=== PATIENT | male | born 1930 | race Caucasian/White ===

== ENCOUNTER 2016-08-28 00:05 | Emergency (ER) | payer MEDICARE, OTHER ==
[~2016-08-28] VITALS: Ht 185.4 cm; Wt 82.0 kg
[~2016-08-28 00:05] MED LIST: ASPI-496 PO; CALC200T3 PO; LISI40TA PO; METO-95 PO; TAMS0.4C2 PO
[2016-08-28] MEDS ORDERED: FAMOTIDINE 20 MG TABLET ONE (00:28)
[2016-08-28] MEDS ORDERED: FAMOTIDINE 20 MG TABLET PO ONE (00:30)
[2016-08-28] MEDS ORDERED: EPINEPHRINE 1 MG/ML, 1ML ONE (01:10)
[2016-08-28] MEDS ORDERED: EPINEPHRINE 1 MG/ML, 1ML SQ ONE (01:30)
[2016-08-28 01:59] VITALS: BP 102/67
== END 2016-08-28 02:07 ==
LOC: ED 00:21
DX: L50.9 Urticaria, unspecified (principal); I10 Essential (primary) hypertension; Z85.46 Personal history of malignant neoplasm of prostate
CPT/HCPCS: 93005; 96372; 99284; J0171; J7512; Q0177

== ENCOUNTER 2016-09-17 11:42 | Inpatient (IN) | payer MEDICARE, OTHER ==
[~2016-09-17] VITALS: Ht 182.9 cm; Wt 76.2 kg
[2016-09-17] MEDS ORDERED: SODIUM CHLORIDE 0.9% 1,000 ML IV ONE ×3 (11:43→16:30)
[2016-09-17] MEDS ORDERED: SODIUM CHLORIDE 0.9% 1,000ML IVBOLUS ONE (12:00)
[2016-09-17] MEDS ORDERED: SODIUM CHLORIDE FLUSH 10ML SYR IVF ONE (12:00)
[2016-09-17 12:21] LABS: ASPARTATE AMINO TRANSFERASE 20 U/L (15-37); BLOOD UREA NITROGEN 23 mg/dL (7-18)
[2016-09-17] MEDS ORDERED: LISI-170 PO (14:26)
[2016-09-17] MEDS ORDERED: PANT40TA5 PO (14:26)
[2016-09-17] MEDS ORDERED: SUCR1TAB26 PO (14:26)
[2016-09-17] MEDS ORDERED: SODIUM CHLORIDE FLUSH 10ML SYR IVF PRN ×2 (14:30→16:30)
[2016-09-17] MEDS ORDERED: ACETAMINOPHEN 325 MG TABLET PO PRN (15:30)
[2016-09-17] MEDS ORDERED: ONDANSETRON ODT 4 MG PO PRN (15:30)
[2016-09-17] MEDS ORDERED: ONDANSETRON 2MG/ML, 2ML IVPush PRN (15:30)
[2016-09-17] MEDS ORDERED: HEPARIN 5,000 UNITS/ML, 1ML SQ SCH (15:30)
[2016-09-17] MEDS ORDERED: CALCIUM CARBONATE 500 MG TAB.CHEW PO PRN (16:00)
[2016-09-17 17:18] VITALS: BP 145/83
[2016-09-17] MEDS ORDERED: OMNIPAQUE 350 MG/ML, 75ML BOTTLE ONE (18:15)
[2016-09-17 19:14] LABS: IS PT STATUS REG ER OR PRE ER? NO
[2016-09-17] MEDS: POTASSIUM CHLORIDE 10 MEQ in SODIUM CHLORIDE 0.45% 1,000 ML IV SCH (19:41)
[2016-09-17 19:45] VITALS: BP 126/66
[2016-09-17] MEDS: SUCRALFATE 1 GM TABLET PO SCH (20:17)
[2016-09-17] MEDS: TAMSULOSIN 0.4 MG CAP.ER.24H PO SCH (20:17)
[2016-09-18 01:53] LABS: IS PT STATUS REG ER OR PRE ER? NO
[2016-09-18 01:55] LABS: ASPARTATE AMINO TRANSFERASE 18 U/L (15-37); BLOOD UREA NITROGEN 19 mg/dL (7-18)
[2016-09-18 02:08] VITALS: BP 103/57
[2016-09-18] MEDS: POTASSIUM CHLORIDE 10 MEQ in SODIUM CHLORIDE 0.45% 1,000 ML IV SCH ×3 (02:48→16:00)
[2016-09-18] MEDS: HEPARIN 5,000 UNITS/ML, 1ML SQ SCH ×4 (04:10→22:00)
[2016-09-18] MEDS: ASPIRIN 81 MG TABLET EC PO SCH (08:00)
[2016-09-18] MEDS: SUCRALFATE 1 GM TABLET PO SCH ×2 (08:00→22:00)
[2016-09-18] MEDS: PANTOPROZOLE 40MG TABLET PO SCH (08:00)
[2016-09-18] MEDS ORDERED: HEPARIN 5,000 UNITS/ML, 1ML SQ SCH (20:00)
[2016-09-18] MEDS: TAMSULOSIN 0.4 MG CAP.ER.24H PO SCH (22:00)
[2016-09-19] MEDS: HEPARIN 5,000 UNITS/ML, 1ML SQ SCH ×2 (04:00→21:48)
[2016-09-19] MEDS: ASPIRIN 81 MG TABLET EC PO SCH ×2 (08:00→09:00)
[2016-09-19 08:25] VITALS: BP 120/72
[2016-09-19] MEDS: POTASSIUM CHLORIDE 10 MEQ in SODIUM CHLORIDE 0.45% 1,000 ML IV SCH ×2 (09:00→16:23)
[2016-09-19] MEDS: SUCRALFATE 1 GM TABLET PO SCH ×2 (09:00→21:47)
[2016-09-19] MEDS: PANTOPROZOLE 40MG TABLET PO SCH (09:00)
[2016-09-19 15:00] VITALS: BP 137/75
[2016-09-19 15:02] VITALS: BP 107/66
[2016-09-19 15:04] VITALS: BP 91/52
[2016-09-19 20:32] VITALS: BP 129/84
[2016-09-19] MEDS ORDERED: CEFTRIAXONE 1,000 MG in SODIUM CHLORIDE 0.9% 50 ML IV SCH (21:00)
[2016-09-19] MEDS: TAMSULOSIN 0.4 MG CAP.ER.24H PO SCH (21:47)
[2016-09-19] MEDS: CEFTRIAXONE 1,000 MG in DEXTROSE 5% 50 ML IV SCH (21:48)
[2016-09-20] VITALS (8 sets, daily range): BP systolic 86–156; BP diastolic 51–89
[2016-09-20] MEDS: POTASSIUM CHLORIDE 10 MEQ in SODIUM CHLORIDE 0.45% 1,000 ML IV SCH (01:40)
[2016-09-20] MEDS: HEPARIN 5,000 UNITS/ML, 1ML SQ SCH (03:39)
[2016-09-20] MEDS ORDERED: FLUDROCORTISONE 0.1 MG TABLET PO SCH ×2 (09:30→21:00)
[2016-09-20] MEDS: SODIUM CHLORIDE 0.9% 1,000 ML IV SCH ×2 (10:31→21:09)
[2016-09-20] MEDS: CEFTRIAXONE 1,000 MG in DEXTROSE 5% 50 ML IV SCH (21:09)
[2016-09-21] VITALS (8 sets, daily range): BP systolic 83–162; BP diastolic 54–94
[2016-09-21] MEDS: SODIUM CHLORIDE 0.9% 1,000 ML IV SCH ×2 (07:30→20:45)
[2016-09-21] MEDS: SUCRALFATE 1 GM TABLET PO SCH ×2 (09:00→20:45)
[2016-09-21] MEDS: FLUDROCORTISONE 0.1 MG TABLET PO SCH ×3 (09:50→20:46)
[2016-09-21] MEDS: ASPIRIN 81 MG TABLET EC PO SCH (09:52)
[2016-09-21] MEDS: PANTOPROZOLE 40MG TABLET PO SCH (09:53)
[2016-09-21 12:29] LABS: BLOOD UREA NITROGEN 11 mg/dL (7-18)
[2016-09-21 12:55] LABS: BLOOD UREA NITROGEN 11 mg/dL (7-18)
[2016-09-21] MEDS: HEPARIN 5,000 UNITS/ML, 1ML SQ SCH ×2 (13:11→20:47)
[2016-09-21] MEDS: CEFTRIAXONE 1,000 MG in DEXTROSE 5% 50 ML IV SCH (20:47)
[2016-09-21] MEDS: DOCUSATE 100 MG CAPSULE PO PRN (20:52)
[2016-09-22 00:58] VITALS: BP 151/86
[2016-09-22] MEDS: SODIUM CHLORIDE 0.9% 1,000 ML IV SCH (05:23)
[2016-09-22] MEDS: HEPARIN 5,000 UNITS/ML, 1ML SQ SCH ×3 (05:23→20:46)
[2016-09-22 05:37] LABS: BLOOD UREA NITROGEN 9 mg/dL (7-18)
[2016-09-22 08:22] VITALS: BP_SYST 127; BP_SYST 143; BP_SYST 88; BP_DIAS 54; BP_DIAS 80; BP_DIAS 86
[2016-09-22] MEDS: FLUDROCORTISONE 0.1 MG TABLET PO SCH ×3 (10:12→20:45)
[2016-09-22] MEDS: ASPIRIN 81 MG TABLET EC PO SCH (10:13)
[2016-09-22] MEDS: PANTOPROZOLE 40MG TABLET PO SCH (10:13)
[2016-09-22] MEDS: SUCRALFATE 1 GM TABLET PO SCH ×2 (10:13→20:46)
[2016-09-22 13:46] VITALS: BP_SYST 110; BP_SYST 127; BP_SYST 146; BP_DIAS 69; BP_DIAS 79; BP_DIAS 95
[2016-09-22] MEDS ORDERED: OMNIPAQUE 350 MG/ML, 100ML BOTTLE ONE (16:25)
[2016-09-22 20:24] VITALS: BP_SYST 119; BP_SYST 147; BP_SYST 156; BP_DIAS 68; BP_DIAS 76; BP_DIAS 87
[2016-09-22] MEDS: DOCUSATE 100 MG CAPSULE PO PRN (20:46)
[2016-09-23 03:03] VITALS: BP_SYST 131; BP_SYST 146; BP_SYST 91; BP_DIAS 52; BP_DIAS 77; BP_DIAS 79
[2016-09-23] MEDS: HEPARIN 5,000 UNITS/ML, 1ML SQ SCH (05:33)
[2016-09-23 07:17] VITALS: BP_SYST 131; BP_SYST 132; BP_SYST 95; BP_DIAS 51; BP_DIAS 75; BP_DIAS 90
[2016-09-23] MEDS: SUCRALFATE 1 GM TABLET PO SCH (08:17)
[2016-09-23] MEDS: ASPIRIN 81 MG TABLET EC PO SCH (08:18)
[2016-09-23] MEDS: FLUDROCORTISONE 0.1 MG TABLET PO SCH (08:18)
[2016-09-23] MEDS: PANTOPROZOLE 40MG TABLET PO SCH (08:19)
[2016-09-23] MEDS ORDERED: FLUDROCORTISONE 0.1 MG TABLET PO ONE (11:30)
[2016-09-23] MEDS ORDERED: FLUD0.1T PO (12:30)
[2016-09-23] MEDS ORDERED: METR500T PO (12:37)
[2016-09-23] MEDS ORDERED: CIPR500T87 PO (12:43)
[2016-09-23 14:04] VITALS: BP_SYST 108; BP_SYST 139; BP_SYST 164; BP_DIAS 100; BP_DIAS 59; BP_DIAS 87
[2016-09-23] MEDS ORDERED: FLUDROCORTISONE 0.1 MG TABLET PO SCH (21:00)
== END 2016-09-23 16:06 | disposition home or self-care (01) | DRG 312 ==
LOC: ED 14:16 → EDIP 14:50 → 3NE 15:22 → 4EST 15:35 → 4WST 16:39
PROVIDERS: ADMIT Hospitalist; ATTEND Hospitalist
DX: I95.1 Orthostatic hypotension (principal); I13.0 Hypertensive heart and chronic kidney disease with heart failure and stage 1 through stage 4 chronic kidney disease, or unspecified chronic kidney disease; I42.9 Cardiomyopathy, unspecified; I50.22 Chronic systolic (congestive) heart failure; R78.81 Bacteremia; C78.01 Secondary malignant neoplasm of right lung; N18.2 Chronic kidney disease, stage 2 (mild); I65.23 Occlusion and stenosis of bilateral carotid arteries; K21.9 Gastro-esophageal reflux disease without esophagitis; K52.9 Noninfective gastroenteritis and colitis, unspecified; E86.0 Dehydration; N28.1 Cyst of kidney, acquired; R91.1 Solitary pulmonary nodule; Z66 Do not resuscitate; Z79.82 Long term (current) use of aspirin; Z80.0 Family history of malignant neoplasm of digestive organs; Z80.7 Family history of other malignant neoplasms of lymphoid, hematopoietic and related tissues; Z85.46 Personal history of malignant neoplasm of prostate; Z85.810 Personal history of malignant neoplasm of tongue; Z85.828 Personal history of other malignant neoplasm of skin; Z87.891 Personal history of nicotine dependence; Z95.0 Presence of cardiac pacemaker; Z95.2 Presence of prosthetic heart valve; Z90.49 Acquired absence of other specified parts of digestive tract; Z81.8 Family history of other mental and behavioral disorders; Z79.899 Other long term (current) drug therapy; I49.5 Sick sinus syndrome; Z95.3 Presence of xenogenic heart valve; T44.6X5A Adverse effect of alpha-adrenoreceptor antagonists, initial encounter; T46.4X5A Adverse effect of angiotensin-converting-enzyme inhibitors, initial encounter; T44.7X5A Adverse effect of beta-adrenoreceptor antagonists, initial encounter
CPT/HCPCS: 36415; 71010; 71260; 74177; 76700; 80048; 80053; 81003; 82040; 83605; 83690; 83735; 84439; 84443; 84484; 85025; 85379; 85610; 85730; 87040; 87076; 87324; 89055; 93005; 93306; 93880; 96360; J0696; J1644; J3480; Q9967; J7030

== ENCOUNTER → 2017-07-24 | Outpatient (CLI) | payer MEDICARE, OTHER ==
[~2017-07-24] MED LIST changes: +CIPR500T87 PO; +FLUD0.1T PO; +LISI-170 PO; +METR500T PO; +OMNIPAQUE 350 MG/ML, 75ML BOTTLE ONE; +PANT40TA5 PO; +SUCR1TAB33 PO
== END | disposition home or self-care (01) ==
LOC: CFH 12:19
PROVIDERS: ATTEND Otolaryngology
DX: G93.89 Other specified disorders of brain (principal); H90.3 Sensorineural hearing loss, bilateral
CPT/HCPCS: 70480; Q9967

== ENCOUNTER → 2018-03-28 | Outpatient (CLI) | payer MEDICARE, OTHER ==
[~2018-03-28] MED LIST changes: -OMNIPAQUE 350 MG/ML, 75ML BOTTLE ONE
== END | disposition home or self-care (01) ==
LOC: PETCFH 08:26
PROVIDERS: ATTEND Urology
DX: M89.9 Disorder of bone, unspecified (principal); C61 Malignant neoplasm of prostate
CPT/HCPCS: 78306; A9503

== ENCOUNTER → 2018-04-05 | Outpatient (CLI) | payer MEDICARE, OTHER ==
[~2018-04-05] MED LIST changes: +OMNIPAQUE 350 MG/ML, 100ML BOTTLE ONE
== END | disposition home or self-care (01) ==
LOC: CFH 10:50
PROVIDERS: ATTEND Urology
DX: Z13.820 Encounter for screening for osteoporosis (principal); C61 Malignant neoplasm of prostate; M81.0 Age-related osteoporosis without current pathological fracture; K57.30 Diverticulosis of large intestine without perforation or abscess without bleeding; K44.9 Diaphragmatic hernia without obstruction or gangrene; K76.89 Other specified diseases of liver; M47.894 Other spondylosis, thoracic region
CPT/HCPCS: 74177; 77080; Q9967

== ENCOUNTER → 2018-09-05 | Outpatient (CLI) | payer MEDICARE, OTHER ==
[~2018-09-05] MED LIST changes: -OMNIPAQUE 350 MG/ML, 100ML BOTTLE ONE
== END | disposition home or self-care (01) ==
LOC: CFH 09:31
PROVIDERS: ATTEND Internal Medicine Cardiovascular Disease
DX: I08.8 Other rheumatic multiple valve diseases (principal); I10 Essential (primary) hypertension; Z95.4 Presence of other heart-valve replacement
CPT/HCPCS: 93306

== ENCOUNTER 2020-10-14 13:32 | Observation (INO) | payer MEDICARE ==
[~2020-10-14] VITALS: Ht 185.4 cm; Wt 69.5 kg
[~2020-10-14 13:32] MED LIST changes: +LEVE500T53 PO; +LISI30TA4 PO; -LISI40TA PO; +LISI40TA9 PO; +METO-93 PO; +METO25TA91 PO; +METO50TA82 PO; +MUPI22OI2 TP; -PANT40TA5 PO; +PANT40TA6 PO; +TAMS-11 PO; +WARF2.5T32 PO
--- NOTE | 2020-10-14 13:54 | NUR ---
PT BIB EMS FOR SEIZURE LIKE ACTIVITY WITNESS BY FAMILY. PT NOT TAKING KEPPRA FOR SIX WEEKS. PT DIAPHORETIC AND POST ICTAL. ABLE TO SAY NAME AND CONFUSED TO SITUATION. FAMILY MEMBER AT BEDSIDE. SEIZURE PADS IN PLACE.
--- NOTE | 2020-10-14 13:58 | NUR ---
PT ALSO HAD FALL, ABRASIN TO LEFT FOREHAD. ON WARFARIN
[2020-10-14] MEDS ORDERED: ONDANSETRON 2MG/ML, 2ML IVPush ONE (14:00)
[2020-10-14] MEDS ORDERED: SODIUM CHLORIDE FLUSH 10ML SYR IVF ONE (14:00)
[2020-10-14 14:21] LABS: BASOPHILS % (AUTO) 1 % (0-1); EOSINOPHILS % (AUTO) 2 % (1-7); LYMPHOCYTES % (AUTO) 12 % (22-44); MEAN CORPUSCULAR HGB CONC 33.4 g/dL (33.2-36.2); MEAN PLATELET VOLUME 7.7 fL (7.4-10.4); MONOCYTES % (AUTO) 8 % (2-9); NEUTROPHILS % (AUTO) 78 % (42-75); PLATELET COUNT 212 x10^3/uL (130-400); RED BLOOD COUNT 4.25 x10^6/uL (4.38-5.82); RED CELL DISTRIBUTION WIDTH 14.7 % (9.4-14.8)
[2020-10-14] MEDS ORDERED: ONDANSETRON 2MG/ML, 2ML ONE (14:23)
--- NOTE | 2020-10-14 14:26 | NUR ---
TASK RN. PT MEDICATED PER ERP ORDER FOR N/V. PER FAMILY MEMBER, PT STARTED SULFA ANTIBIOTIC YESTERDAY FOR UTI. THIS REPORTED TO ERP. VSS/UPDATED IN COMPUTER. CT TO TAKE PT WHEN N/V HAS CEASED.
[2020-10-14 14:33] LABS: ALBUMIN 3.8 g/dL (3.4-5.0); ANION GAP 11 mmol/L (5-15); CALCIUM 9.2 mg/dL (8.5-10.1); CHLORIDE 102 mmol/L (98-107)
[2020-10-14 14:41] LABS: ALANINE AMINOTRANSFERASE 24 U/L (12-78); ALKALINE PHOSPHATASE 64 U/L (45-117); BILIRUBIN,TOTAL 0.9 mg/dL (0.2-1.0); CREATININE 0.97 mg/dL (0.7-1.3); TOTAL PROTEIN 7.2 g/dL (6.4-8.2)
[2020-10-14 14:47] LABS: TROPONIN I 0.125 ng/mL (0.000-0.045)
[2020-10-14 14:59] LABS: INTERNATIONAL NORMALIZED RATIO 2.5 (0.93-1.1); PROTHROMBIN TIME 25.6 Seconds (9.6-11.5)
--- NOTE | 2020-10-14 15:48 | NUR ---
AMBULATED PT W FAMILY TO BATHROOM
[2020-10-14] MEDS ORDERED: LISI2.5T PO (16:22)
[2020-10-14] MEDS ORDERED: SULF1TAB23 PO (16:22)
[2020-10-14] MEDS ORDERED: ASPIRIN 81 MG TABLET CHEW ONE (16:23)
[2020-10-14] MEDS ORDERED: ASPIRIN 81 MG TABLET CHEW PO ONE (16:30)
--- NOTE | 2020-10-14 16:30 | NUR ---
EKG DONE, MEDICATED 162 ASA. PT TO BE ADMITTED. DENIES CP AT THIS TIME
[2020-10-14] MEDS ORDERED: ACETAMINOPHEN 325 MG TABLET PO PRN (17:30)
[2020-10-14] MEDS ORDERED: ENOXAPARIN 40 MG/0.4 ML SQ SCH (17:30)
[2020-10-14] MEDS ORDERED: ONDANSETRON 2MG/ML, 2ML IVPush PRN (17:30)
[2020-10-14 18:20] VITALS: BP 185/93
[2020-10-14] MEDS ORDERED: WARFARIN 2.5 MG TABLET PO-COUM ONE (18:38)
[2020-10-14] MEDS ORDERED: TAMSULOSIN 0.4 MG CAP.ER.24H PO SCH (21:00)
[2020-10-14] MEDS ORDERED: METOPROLOL SUCCINATE 25 MG TAB.ER.24H PO SCH (21:00)
[2020-10-14] MEDS: LEVETIRACETAM 500 MG TABLET PO SCH (21:06)
[2020-10-14] MEDS: SULFAMETH./TRIMETHOPRIM SS 400MG/80MG TABLET PO SCH (21:08)
[2020-10-14 21:45] VITALS: BP 162/85
[2020-10-15 00:48] VITALS: BP 133/80
[2020-10-15 04:55] VITALS: BP 95/53
[2020-10-15 05:16] LABS: TROPONIN I 0.183 ng/mL (0.000-0.045)
[2020-10-15 06:31] VITALS: BP 94/60
[2020-10-15] MEDS ORDERED: REGADENOSON 0.4 MG/5 ML SYRINGE ONE (08:42)
[2020-10-15] MEDS: SULFAMETH./TRIMETHOPRIM SS 400MG/80MG TABLET PO SCH (08:43)
[2020-10-15] MEDS: LEVETIRACETAM 500 MG TABLET PO SCH (08:45)
[2020-10-15] MEDS ORDERED: LISINOPRIL 5 MG TABLET PO SCH (09:00)
[2020-10-15 09:15] VITALS: BP 100/67
[2020-10-15 11:04] LABS: INTERNATIONAL NORMALIZED RATIO 4.04 (0.93-1.1); PROTHROMBIN TIME 40.4 Seconds (9.6-11.5)
[2020-10-15 12:27] VITALS: BP 93/58
[2020-10-15] MEDS ORDERED: LEVE500T53 PO (14:32)
[2020-10-15] MEDS ORDERED: WARF1TAB74 PO (14:32)
[2020-10-15] MEDS ORDERED: WARFARIN 1 MG TABLET PO-COUM ONE (18:00)
== END 2020-10-15 16:26 | disposition home or self-care (01) ==
LOC: ED 13:50 → INTOOBSV 16:33 → EDIP 16:33 → 5SO 18:19
PROVIDERS: ADMIT Internal Medicine; ATTEND Internal Medicine
DX: R56.9 Unspecified convulsions (principal); R79.89 Other specified abnormal findings of blood chemistry; R07.89 Other chest pain; N39.0 Urinary tract infection, site not specified; I48.91 Unspecified atrial fibrillation; I10 Essential (primary) hypertension; E11.9 Type 2 diabetes mellitus without complications; M48.02 Spinal stenosis, cervical region; Z79.01 Long term (current) use of anticoagulants; Z95.0 Presence of cardiac pacemaker; Z85.46 Personal history of malignant neoplasm of prostate; Z66 Do not resuscitate; Z79.899 Other long term (current) drug therapy; Z72.9 Problem related to lifestyle, unspecified
CPT/HCPCS: 36415; 70450; 71045; 72125; 78452; 80053; 84484; 85025; 85610; 93005; 93017; 96374; 99285; A9502; C9898; G0378; J2405; J2785

== ENCOUNTER 2021-01-07 08:00 | Inpatient (IN) | payer MEDICARE ==
[~2021-01-07] VITALS: Ht 182.9 cm; Wt 74.6 kg
[2021-01-07] VITALS (16 sets, daily range): BP systolic 62–146; BP diastolic 44–92
[~2021-01-07 08:00] MED LIST changes: +LIOT5TAB10 PO; +LISI2.5T12 PO; +METO25TA35 PO; +Metoprolol; +SULF1TAB23 PO; +WARF1TAB74 PO; +WARF2TAB99 PO; +WARF3TAB52 PO
[2021-01-07] MEDS ORDERED: SODIUM CHLORIDE FLUSH 10ML SYR IVF ONE (08:30)
[2021-01-07] MEDS ORDERED: SODIUM CHLORIDE 0.9% 1,000ML IVBOLUS ONE (08:30)
[2021-01-07] MEDS ORDERED: SODIUM CHLORIDE 0.9% 1,000 ML IV ONE (08:30)
[2021-01-07] MEDS ORDERED: PANTOPRAZOLE 40 MG IV IVPush ONE (08:30)
--- NOTE | 2021-01-07 08:39 | NUR ---
pt to radiology.
--- NOTE | 2021-01-07 08:40 | NUR ---
pt placed on bed greene with chucks. loose bloody stool observed. aware.
[2021-01-07 08:42] LABS: BASOPHILS % (AUTO) 1 % (0-1); EOSINOPHILS % (AUTO) 1 % (1-7); LYMPHOCYTES % (AUTO) 14 % (22-44); MEAN CORPUSCULAR HEMOGLOBIN 30.4 pg (27.5-34.5); MEAN CORPUSCULAR HGB CONC 33.3 g/dL (33.2-36.2); MEAN PLATELET VOLUME 7.5 fL (7.4-10.4); MONOCYTES % (AUTO) 9 % (2-9); NEUTROPHILS % (AUTO) 75 % (42-75); PLATELET COUNT 266 x10^3/uL (130-400); RED BLOOD COUNT 2.54 x10^6/uL (4.38-5.82); RED CELL DISTRIBUTION WIDTH 15.5 % (9.4-14.8)
[2021-01-07] MEDS ORDERED: PANTOPRAZOLE 40 MG IV ONE (08:44)
--- NOTE | 2021-01-07 08:49 | NUR ---
xray not done continuos bleeding from rectum pt on bedpan
[2021-01-07] MEDS ORDERED: PLEASE ENTER HEIGHT AND WEIGHT MC SCH (09:00)
[2021-01-07 09:01] LABS: ANION GAP 4 mmol/L (5-15); CALCIUM 8.3 mg/dL (8.5-10.1); CHLORIDE 107 mmol/L (98-107); CREATININE 0.64 mg/dL (0.7-1.3)
[2021-01-07 09:02] LABS: ALANINE AMINOTRANSFERASE 14 U/L (12-78); ALBUMIN 2.3 g/dL (3.4-5.0)
[2021-01-07 09:03] LABS: ALKALINE PHOSPHATASE 68 U/L (45-117); BILIRUBIN,TOTAL 0.8 mg/dL (0.2-1.0); TOTAL PROTEIN 5.5 g/dL (6.4-8.2)
[2021-01-07 10:08] LABS: INTERNATIONAL NORMALIZED RATIO 1.88 (0.93-1.1); PROTHROMBIN TIME 19.5 Seconds (9.6-11.5)
--- NOTE | 2021-01-07 10:17 | NUR ---
in room to vital pt. daughter at bedside states hse thinks he may have had A BOWEL MOVEMENT. PT WAS PLACED ON BEDPAN WITH ABSORBANT PADS. ESTIMATED BLOOD LOSS IN BED KERNS OF 650 ML. MADE AWARE. PT CLEANED WITH BED SHEETS CHANGED. BLOOD STARTED WITH MANNY CARTER. CONSENT AT BEDSIDE. PT PLACED ON NEW BED KERNS AND PROCCEDED TO HAVE 3 MORE BOWEL MOVEMENTS WHILE VERIFYING BLOOD. WALL SUCTION HOOKED UP AND AND AN ADDITIONAL 150 ML OF BLOOD SUCTIONED.
[2021-01-07] MEDS ORDERED: [UNRECOGNIZED DRUG - OTHER] IV ONE (11:30)
[2021-01-07] MEDS ORDERED: HUM PROTHROMBIN CPLX IV ONE ×2 (11:30→12:00)
--- NOTE | 2021-01-07 11:36 | NUR ---
DOSE RATE CALCULATED BY PHARMACIST TO BE 7.8 ML/HR
[2021-01-07] MEDS ORDERED: SODIUM CHLORIDE FLUSH 10ML SYR IVF PRN (12:00)
[2021-01-07] MEDS ORDERED: [UNRECOGNIZED DRUG - OTHER] IV ONE (12:00)
--- NOTE | 2021-01-07 12:13 | NUR ---
PT TO CT NOW. GI WAS AT BEDSIDE FOR EVAL.
[2021-01-07] MEDS ORDERED: OMNIPAQUE 350 MG/ML, 100ML BOTTLE ONE (12:47)
[2021-01-07] MEDS ORDERED: ONDANSETRON 2MG/ML, 2ML IVPush PRN (13:00)
[2021-01-07] MEDS ORDERED: morphine SULFATE 10 MG/ML, 1ML IVPush PRN (13:00)
[2021-01-07] MEDS ORDERED: DOCUSATE 100 MG CAPSULE PO PRN (13:00)
[2021-01-07] MEDS ORDERED: ONDANSETRON ODT 4 MG PO PRN (13:00)
[2021-01-07] MEDS ORDERED: PROMETHAZINE 25 MG/ML, 1ML IM PRN (13:00)
[2021-01-07] MEDS ORDERED: hydrALAzine 20 MG/ML, 1ML IVPush PRN (13:00)
[2021-01-07] MEDS ORDERED: OXYcodone IR 5MG TABLET PO PRN (13:00)
[2021-01-07] MEDS ORDERED: ACETAMINOPHEN 325 MG TABLET PO PRN (13:00)
--- NOTE | 2021-01-07 13:52 | NUR ---
DAUGHTER: REED [phone]
[2021-01-07] MEDS ORDERED: LIDOCAINE 1%, 10ML ONE ×2 (14:45→16:23)
[2021-01-07] MEDS ORDERED: NOREPINEPHRINE 8 MG in SODIUM CHLORIDE 0.9% 242 ML IV PRN (15:30)
[2021-01-07] MEDS: SODIUM CHLORIDE 0.9% 1,000 ML IV SCH (16:50)
[2021-01-07] MEDS: PANTOPRAZOLE 40 MG IV IVPush SCH (16:50)
[2021-01-07] MEDS ORDERED: FENTANYL PF 100 MCG/2ML ONE (16:59)
[2021-01-07] MEDS ORDERED: FLUMAZENIL 0.1 MG/1 ML, 5ML ONE (17:00)
[2021-01-07] MEDS ORDERED: MIDAZOLAM 1 MG/ML, 5ML ONE (17:00)
[2021-01-07] MEDS ORDERED: NALOXONE 1 MG/ML, 2ML ONE (17:00)
[2021-01-07] MEDS ORDERED: LEVETIRACETAM 500 MG TABLET PO SCH (21:00)
[2021-01-07] MEDS: LEVETIRACETAM 500 MG in SODIUM CHLORIDE 0.9% 100 ML IV SCH (22:22)
[2021-01-07 22:59] LABS: MICROSCOPIC INDICATED
[2021-01-08] VITALS (17 sets, daily range): BP systolic 94–132; BP diastolic 51–71
[2021-01-08] MEDS: SODIUM CHLORIDE 0.9% 1,000 ML IV SCH (01:15)
[2021-01-08] MEDS: PANTOPRAZOLE 40 MG IV IVPush SCH ×2 (01:19→12:01)
[2021-01-08 04:01] LABS: ALBUMIN 1.9 g/dL (3.4-5.0); ANION GAP 5 mmol/L (5-15); CALCIUM 7.6 mg/dL (8.5-10.1); CHLORIDE 111 mmol/L (98-107)
[2021-01-08 04:09] LABS: ALANINE AMINOTRANSFERASE 13 U/L (12-78); ALKALINE PHOSPHATASE 57 U/L (45-117); BILIRUBIN,TOTAL 1.9 mg/dL (0.2-1.0); CHOL/HDL RATIO 3.4; CHOLESTEROL, TOTAL 84 mg/dL (140-239); CREATININE 0.49 mg/dL (0.7-1.3); HDL CHOL % 30 % (26-37); HDL CHOLESTEROL (DIRECT) 25 mg/dL (40-60); LDL CHOLESTEROL,CALCULATED 43 mg/dL (54-169); LDL/HDL RATIO 1.7 (0.5-3.0); TOTAL PROTEIN 4.7 g/dL (6.4-8.2); TRIGLYCERIDES 79 mg/dL (50-200); VLDL CHOLESTEROL 16 mg/dL (0-25)
[2021-01-08] MEDS: LEVETIRACETAM 500 MG in SODIUM CHLORIDE 0.9% 100 ML IV SCH ×2 (07:53→20:46)
[2021-01-08] MEDS: LIOTHYRONINE 5 MCG TABLET PO SCH (07:53)
[2021-01-08] MEDS: TAMSULOSIN 0.4 MG CAP.ER.24H PO SCH (07:53)
[2021-01-08] MEDS ORDERED: ACETAMINOPHEN 325 MG TABLET PO ONE (08:00)
[2021-01-08] MEDS ORDERED: MAGNESIUM SULFATE 4 GM in SODIUM CHLORIDE 0.9% 100 ML IV ONE (08:00)
[2021-01-08] MEDS ORDERED: SODIUM CHLORIDE 0.9% 250 ML IV ONE (08:00)
[2021-01-08] MEDS ORDERED: MAGNESIUM SULFATE PMX 4GM/100M 100 ML ONE (08:23)
[2021-01-08] MEDS: CEFTRIAXONE 2 GM in DEXTROSE 5% 50 ML IVPB SCH (10:16)
[2021-01-08] MEDS ORDERED: GOLYTELY 4,000ML ORAL.SOL PO ONE (11:30)
[2021-01-09 00:45] VITALS: BP 128/77
[2021-01-09] MEDS: PANTOPRAZOLE 40 MG IV IVPush SCH ×2 (01:41→12:23)
[2021-01-09 06:29] LABS: BASOPHILS % (AUTO) 1 % (0-1); EOSINOPHILS % (AUTO) 1 % (1-7); LYMPHOCYTES % (AUTO) 9 % (22-44); MEAN CORPUSCULAR HEMOGLOBIN 29.7 pg (27.5-34.5); MEAN CORPUSCULAR HGB CONC 33.9 g/dL (33.2-36.2); MEAN PLATELET VOLUME 7.6 fL (7.4-10.4); MONOCYTES % (AUTO) 8 % (2-9); NEUTROPHILS % (AUTO) 81 % (42-75); PLATELET COUNT 208 x10^3/uL (130-400); RED BLOOD COUNT 2.93 x10^6/uL (4.38-5.82); RED CELL DISTRIBUTION WIDTH 16.8 % (9.4-14.8)
[2021-01-09 06:38] LABS: ANION GAP 5 mmol/L (5-15); CALCIUM 7.7 mg/dL (8.5-10.1); CHLORIDE 109 mmol/L (98-107); CREATININE 0.53 mg/dL (0.7-1.3)
[2021-01-09] MEDS ORDERED: POTASSIUM PHOSPHATE 44 MEQ in SODIUM CHLORIDE 0.9% 500 ML IV ONE (08:30)
[2021-01-09] MEDS ORDERED: hydrALAzine 20 MG/ML, 1ML IV PRN (08:30)
[2021-01-09] MEDS ORDERED: ALBUTEROL SULFATE 2.5 MG/3 ML NPPB PRN (08:30)
[2021-01-09] MEDS ORDERED: LABETALOL 5MG/ML, 20ML IV PRN (08:30)
[2021-01-09] MEDS ORDERED: METOCLOPRAMIDE 5 MG/ML, 2ML IV PRN (08:30)
[2021-01-09] MEDS ORDERED: FENTANYL PF 100 MCG/2ML IV PRN (08:30)
[2021-01-09] MEDS ORDERED: ONDANSETRON 2MG/ML, 2ML IVPush PRN (08:30)
[2021-01-09] MEDS ORDERED: HYDROmorphone 1 MG/ML, 1ML INJ IV PRN (08:30)
[2021-01-09] MEDS ORDERED: KETOROLAC 30 MG/1 ML IV PRN (08:30)
[2021-01-09] MEDS ORDERED: MEPERIDINE/PF 25MG/0.5ML IVPush PRN (08:30)
[2021-01-09] MEDS ORDERED: OXYcodone 5 MG/5 ML ORAL.SOL UDC PO PRN (08:30)
[2021-01-09] MEDS ORDERED: DIAZEPAM 5 MG/ML, 2ML IV PRN ×2 (08:30)
[2021-01-09] MEDS ORDERED: PROMETHAZINE 25 MG/ML, 1ML IV PRN (08:30)
[2021-01-09] MEDS: TAMSULOSIN 0.4 MG CAP.ER.24H PO SCH (09:22)
[2021-01-09] MEDS: LEVETIRACETAM 500 MG in SODIUM CHLORIDE 0.9% 100 ML IV SCH ×2 (09:22→20:30)
[2021-01-09] MEDS: LIOTHYRONINE 5 MCG TABLET PO SCH (09:22)
[2021-01-09] MEDS: CEFTRIAXONE 2 GM in DEXTROSE 5% 50 ML IVPB SCH (09:22)
[2021-01-09] MEDS: PSYLLIUM PACKET PO SCH (09:28)
[2021-01-09 09:37] VITALS: BP 143/77
[2021-01-09 12:36] VITALS: BP_SYST 119; BP_DIAS 119; BP_DIAS 92
[2021-01-09 19:09] VITALS: BP 129/79
[2021-01-10] MEDS: PANTOPRAZOLE 40 MG IV IVPush SCH ×2 (01:03→13:13)
[2021-01-10 01:07] VITALS: BP 121/68
[2021-01-10 06:46] LABS: ANION GAP 5 mmol/L (5-15); CALCIUM 7.6 mg/dL (8.5-10.1); CHLORIDE 108 mmol/L (98-107)
[2021-01-10 06:53] LABS: BASOPHILS % (AUTO) 1 % (0-1); EOSINOPHILS % (AUTO) 2 % (1-7); LYMPHOCYTES % (AUTO) 12 % (22-44); MEAN CORPUSCULAR HEMOGLOBIN 30.5 pg (27.5-34.5); MEAN CORPUSCULAR HGB CONC 34.8 g/dL (33.2-36.2); MEAN PLATELET VOLUME 7.6 fL (7.4-10.4); MONOCYTES % (AUTO) 8 % (2-9); NEUTROPHILS % (AUTO) 78 % (42-75); PLATELET COUNT 191 x10^3/uL (130-400); RED BLOOD COUNT 2.56 x10^6/uL (4.38-5.82); RED CELL DISTRIBUTION WIDTH 16.5 % (9.4-14.8)
[2021-01-10 07:31] VITALS: BP 132/75
[2021-01-10] MEDS: PSYLLIUM PACKET PO SCH (09:00)
[2021-01-10] MEDS: LIOTHYRONINE 5 MCG TABLET PO SCH (09:01)
[2021-01-10] MEDS: TAMSULOSIN 0.4 MG CAP.ER.24H PO SCH (09:01)
[2021-01-10] MEDS: CEFTRIAXONE 2 GM in DEXTROSE 5% 50 ML IVPB SCH (09:02)
[2021-01-10] MEDS: LEVETIRACETAM 500 MG in SODIUM CHLORIDE 0.9% 100 ML IV SCH (10:19)
[2021-01-10 13:49] VITALS: BP 141/77
[2021-01-10] MEDS ORDERED: WARFARIN 2.5 MG TABLET PO-COUM ONE (14:32)
[2021-01-10] MEDS ORDERED: WARFARIN 5 MG TABLET PO-COUM ONE (14:37)
[2021-01-10] MEDS ORDERED: METO25TA91 PO (15:31)
== END 2021-01-10 15:37 | disposition home health service (06) | DRG 377 ==
LOC: ED 08:30 → EDIP 11:35 → 4EST 14:35 → CCU 15:21 → 4EST 18:27
PROVIDERS: ADMIT Family Medicine; ATTEND Internal Medicine
PROC: B4141ZZ Fluoroscopy of Superior Mesenteric Artery using Low Osmolar Contrast (ICD-10-PCS; 2021-01-07)
PROC: B4151ZZ Fluoroscopy of Inferior Mesenteric Artery using Low Osmolar Contrast (ICD-10-PCS; 2021-01-07)
PROC: 02HV33Z Insertion of Infusion Device into Superior Vena Cava, Percutaneous Approach (ICD-10-PCS; 2021-01-07)
PROC: B5181ZA Fluoroscopy of Superior Vena Cava using Low Osmolar Contrast, Guidance (ICD-10-PCS; 2021-01-07)
PROC: B548ZZA Ultrasonography of Superior Vena Cava, Guidance (ICD-10-PCS; 2021-01-07)
PROC: 30233N1 Transfusion of Nonautologous Red Blood Cells into Peripheral Vein, Percutaneous Approach (ICD-10-PCS; 2021-01-07)
PROC: 0D5K8ZZ Destruction of Ascending Colon, Via Natural or Artificial Opening Endoscopic (ICD-10-PCS; principal; 2021-01-09 08:00)
DX: K55.21 Angiodysplasia of colon with hemorrhage (principal); R57.8 Other shock; D62 Acute posthemorrhagic anemia; D68.69 Other thrombophilia; I48.20 Chronic atrial fibrillation, unspecified; K56.7 Ileus, unspecified; N39.0 Urinary tract infection, site not specified; K57.31 Diverticulosis of large intestine without perforation or abscess with bleeding; Z20.822 Contact with and (suspected) exposure to COVID-19; E11.9 Type 2 diabetes mellitus without complications; E78.5 Hyperlipidemia, unspecified; G40.909 Epilepsy, unspecified, not intractable, without status epilepticus; I10 Essential (primary) hypertension; K64.4 Residual hemorrhoidal skin tags; K64.8 Other hemorrhoids; N40.1 Benign prostatic hyperplasia with lower urinary tract symptoms; R33.8 Other retention of urine; Z79.01 Long term (current) use of anticoagulants; Z85.46 Personal history of malignant neoplasm of prostate; Z85.810 Personal history of malignant neoplasm of tongue; Z87.440 Personal history of urinary (tract) infections; Z91.14 Patient's other noncompliance with medication regimen; Z91.19 Patient's noncompliance with other medical treatment and regimen; Z92.21 Personal history of antineoplastic chemotherapy; Z95.0 Presence of cardiac pacemaker; Z95.3 Presence of xenogenic heart valve; Z90.49 Acquired absence of other specified parts of digestive tract; Z92.3 Personal history of irradiation; Z79.84 Long term (current) use of oral hypoglycemic drugs
CPT/HCPCS: 36415; 36573; 37244; 74174; 80048; 80053; 80061; 81001; 83036; 83690; 83735; 84100; 84443; 85014; 85018; 85025; 85610; 85730; 86850; 86900; 86923; 87077; 87086; 87186; 96361; 96374; 99156; 99157; 99291; C1894; G0378; J0696; J1953; J2250; J3010; J3475; Q9967; U0005; C1751; C1769; C9113; C9132; J2310; J7030; J7040; J7050; P9016; U0003